=== PATIENT | male | born 1980 | race Caucasian/White ===

== ENCOUNTER 2018-04-14 01:36 | Emergency (ER) | payer MEDICAID ==
[2018-04-14] MEDS ORDERED: HYDROmorphone 0.5 MG/0.5 ML Syringe IM ONE (02:44)
--- NOTE | 2018-04-14 02:53 | EDM.PDOC ---
<Franchesca Patel - Last Filed: 04/14/18 06:29> ED HPI GENERAL MEDICAL PROBLEM - General Chief Complaint: Abdominal Pain Stated Complaint: ABD PAIN Time Seen by Provider: 04/14/18 02:48 Source of Information: Reports: Patient History Limitations: Reports: No Limitations - History of Present Illness INITIAL COMMENTS - FREE TEXT/NARRATIVE: pt arrived withj pain in the rt upper abdoman. he has no flank pain. He does have a past history of kidney stones. He dioes not have a fever. Onset: Today, Other (Pt started having ) Duration: Hour(s):, Getting Worse Location: Reports: Abdomen Associated Symptoms: Reports: No Other Symptoms Abdominal Pain Score (Numeric/FACES): 6 - Related Data Allergies Allergy/AdvReac Type Severity Reaction Status Date / Time haloperidol [From Haldol] Allergy Body Aches Verified 04/14/18 02:17 peanut Allergy Rash Verified 04/14/18 02:17 Home Meds: Home Meds Fish Oil/[place]-3 Fatty Acids [Fish Oil] 1 each PO DAILY 04/14/18 [History] Naltrexone 50 mg PO DAILY 04/14/18 [History] hydrOXYzine Pamoate [Hydroxyzine Pamoate] 50 mg PO TID 04/14/18 [History] traZODone 100 mg PO BEDTIME 04/14/18 [History] Past Medical History Genitourinary History: Reports: Renal Calculus Psychiatric History: Reports: Addiction - Past Surgical History Musculoskeletal Surgical History: Reports: Arthroscopic Knee Social & Family History - Tobacco Use Smoking Status *Q: Current Every Day Smoker Years of Tobacco use: 20 Packs/Tins Daily: 1 - Caffeine Use Caffeine Use: Reports: Coffee, Soda - Recreational Drug Use Recreational Drug Use: Yes Drug Use in Last 12 Months: Yes Recreational Drug Type: Reports: Methamphetamine ED ROS GENERAL - Review of Systems Review Of Systems: See Below Constitutional: Reports: Decreased Appetite HEENT: Reports: No Symptoms Respiratory: Reports: No Symptoms Cardiovascular: Reports: No Symptoms Endocrine: Reports: No Symptoms GI/Abdominal: Reports: Abdominal Pain, Decreased Appetite : Reports: No Symptoms Musculoskeletal: Reports: No Symptoms Skin: Reports: No Symptoms Neurological: Reports: No Symptoms Psychiatric: Reports: Anxiety Immunologic: Reports: No Symptoms ED EXAM, GI/ABD - Physical Exam Exam: See Below Text/Narrative:: Pt arrived with pain in the rt upper abdoman. He has not been vomiting. Exam Limited By: No Limitations General Appearance: Alert, Anxious, Obtunded Ears: Normal TMs Nose: Normal Inspection Throat/Mouth: Normal Inspection Head: Atraumatic Neck: Normal Inspection Respiratory/Chest: No Respiratory Distress Cardiovascular: Regular Rate, Rhythm GI/Abdominal Exam: Tender, Other (rt upper abdoman. ) (Male) Exam: Deferred Rectal (Males) Exam: Deferred Back Exam: Normal Inspection Extremities: Normal Inspection Neurological: Alert, Oriented, Normal Cognition Course - Vital Signs Last Recorded V/S: Last Vital Signs Temp 96.4 F 04/14/18 07:50 Pulse 78 04/14/18 07:50 Resp 16 04/14/18 07:50 BP 126/81 04/14/18 07:50 Pulse Ox 95 04/14/18 07:50 - Orders/Labs/Meds Orders: Active Orders 24 hr Category Date Time Status Abdomen Ltd [US] Stat Exams 04/14/18 04:01 Taken UA W/MICROSCOPIC [URIN] Urgent Lab 04/14/18 03:17 Ordered Saline Lock Insert [OM.PC] Routine Oth 04/14/18 04:00 Ordered Labs: Laboratory Tests 04/14/18 04/14/18 04/14/18 Range/Units 02:35 03:02 03:02 WBC 8.0 (4.5-11.0) K/uL RBC 5.69 (4.30-5.90) M/uL Hgb 16.8 H (12.0-15.0) g/dL Hct 47.1 (40.0-54.0) % MCV 83 (80-98) fL MCH 30 (27-31) pg MCHC 36 (32-36) % Plt Count 225 (150-400) K/uL Neut % (Auto) 57 (36-66) % Lymph % (Auto) 32 (24-44) % [place] % (Auto) 9 H (2-6) % Eos % (Auto) 2 (2-4) % Baso % (Auto) 0 (0-1) % Sodium 137 L (140-148) mmol/L Potassium 3.9 (3.6-5.2) mmol/L Chloride 101 (100-108) mmol/L Carbon Dioxide 29 (21-32) mmol/L Anion Gap 10.9 (5.0-14.0) mmol/L BUN 16 (7-18) mg/dL Creatinine 1.4 H (0.8-1.3) mg/dL Est Cr Clr Drug Dosing 76.94 mL/min Estimated GFR (MDRD) 57 L (>60) Glucose 89 (74-106) mg/dL Calcium 8.8 (8.5-10.1) mg/dL Total Bilirubin 0.4 (0.2-1.0) mg/dL AST 14 L (15-37) U/L ALT 30 (12-78) U/L Alkaline Phosphatase 63 (46-116) U/L Total Protein 7.4 (6.4-8.2) g/dL Albumin 3.6 (3.4-5.0) g/dL Globulin 3.8 H (2.3-3.5) g/dL Albumin/Globulin Ratio 1.0 L (1.2-2.2) Amylase (25-115) U/L Lipase 107 (73-393) U/L Urine Color Urine Appearance Urine pH (4.5-8.0) Ur Specific [place] (1.008-1.030) Urine Protein (NEGATIVE) mg/dL Urine Glucose (UA) (NEGATIVE) mg/dL Urine Ketones (NEGATIVE) mg/dL Urine Occult Blood (NEGATIVE) Urine Nitrite (NEGAITVE) Urine Bilirubin (NEGATIVE) Urine Urobilinogen (NORMAL) mg/dL Ur Leukocyte Esterase (NEGATIVE) Urine RBC (0-5) Urine WBC (0-5) Ur Epithelial Cells Amorphous Sediment Urine Bacteria Urine Mucus 04/14/18 04/14/18 Range/Units 03:02 03:17 WBC (4.5-11.0) K/uL RBC (4.30-5.90) M/uL Hgb (12.0-15.0) g/dL Hct (40.0-54.0) % MCV (80-98) fL MCH (27-31) pg MCHC (32-36) % Plt Count (150-400) K/uL Neut % (Auto) (36-66) % Lymph % (Auto) (24-44) % [place] % (Auto) (2-6) % Eos % (Auto) (2-4) % Baso % (Auto) (0-1) % Sodium (140-148) mmol/L Potassium (3.6-5.2) mmol/L Chloride (100-108) mmol/L Carbon Dioxide (21-32) mmol/L Anion Gap (5.0-14.0) mmol/L BUN (7-18) mg/dL Creatinine (0.8-1.3) mg/dL Est Cr Clr Drug Dosing mL/min Estimated GFR (MDRD) (>60) Glucose (74-106) mg/dL Calcium (8.5-10.1) mg/dL Total Bilirubin (0.2-1.0) mg/dL AST (15-37) U/L ALT (12-78) U/L Alkaline Phosphatase (46-116) U/L Total Protein (6.4-8.2) g/dL Albumin (3.4-5.0) g/dL Globulin (2.3-3.5) g/dL Albumin/Globulin Ratio (1.2-2.2) Amylase 63 (25-115) U/L Lipase (73-393) U/L Urine Color Yellow Urine Appearance Clear Urine pH 6.0 (4.5-8.0) Ur Specific [place] 1.015 (1.008-1.030) Urine Protein Negative (NEGATIVE) mg/dL Urine Glucose (UA) Normal (NEGATIVE) mg/dL Urine Ketones Negative (NEGATIVE) mg/dL Urine Occult Blood Negative (NEGATIVE) Urine Nitrite Negative (NEGAITVE) Urine Bilirubin Negative (NEGATIVE) Urine Urobilinogen Normal (NORMAL) mg/dL Ur Leukocyte Esterase Negative (NEGATIVE) Urine RBC 0-5 (0-5) Urine WBC 0-5 (0-5) Ur Epithelial Cells Rare Amorphous Sediment Not seen Urine Bacteria Few Urine Mucus Not seen Meds: Medications Discontinued Medications Generic Name Dose Route Start Last Admin Trade Name Freq PRN Reason Stop Dose Admin Hydromorphone HCl 0.5 mg 04/14/18 02:44 04/14/18 03:06 Dilaudid IM 04/14/18 02:45 0.5 mg ONETIME ONE Administration Ketorolac Tromethamine 30 mg 04/14/18 04:00 04/14/18 07:50 Toradol IVPUSH 04/14/18 04:01 Not Given ONETIME ONE Sodium Chloride 10 ml 04/14/18 04:00 Saline Flush FLUSH ASDIRECTED PRN Keep Vein Open - Re-Assessments/Exams Free Text/Narrative Re-Assessment/Exam: 04/14/18 06:30 pt has normal looking lab. His pain is better with the dilaudid .5. Will obtain a [place] limited. 04/14/18 06:30 Departure - Departure Disposition: Home, Self-Care 01 Clinical Impression: Flank pain Abdominal pain Qualifiers: Abdominal location: upper abdomen, unspecified Qualified Code(s): R10.10 - Upper abdominal pain, unspecified - Discharge Information Instructions: Abdominal Pain, Adult, [id number] Referrals: PCP,None [Primary Care Provider] - Forms: ED Department Discharge Care Plan Goals: Increase diet and activity as tolerated. Consider rechecking in the next 1-2 weeks if symptoms are recurring, or return to the emergency room if significant pain or discomfort. <Luis Armando España - Last Filed: 04/14/18 08:06> Course - Re-Assessments/Exams Free Text/Narrative Re-Assessment/Exam: 04/14/18 07:41 Care turned over from Dr. Patel pending ultrasound. Patient remained asymptomatic, ultrasound was negative for gallbladder disease, hydronephrosis or kidney abnormalities. Copies of all the labs were given to the patient and he will follow-up when home if symptoms are recurring. No further treatment today. Departure - Departure Time of Disposition: 07:51 Condition: Good
[2018-04-14] MEDS ORDERED: Sodium Chloride 0.9% 10 ML Syringe FLUSH PRN (04:00)
[2018-04-14] MEDS ORDERED: Ketorolac 30 MG/ML SDV IVPUSH ONE (04:00)
--- NOTE | 2018-04-16 08:49 | US ---
Abdomen Ltd CLINICAL HISTORY: Abdominal pain COMPARISON: None. TECHNIQUE: Real-time images were obtained through the right upper quadrant. FINDINGS: The liver is free of mass or biliary dilatation. It is enlarged at the over 17 cm in length . The gallbladder is free of internal filling defect. There is a focus of shadowing in the dependent portion of the gallbladder near the neck. Small stone is not excluded. There is no wall thickening Th e common bile duct measures 4 mm. The pancreas is free of mass as seen. Tail is obscured. The right k idney has a normal appearance. The IVC is normal. IMPRESSION: There is some shadowing near the gallbladder neck without definite intraluminal filling d efects seen within the gallbladder. The this could be due to a contiguous air bubble. Small gallbladd er stone is not excluded. The there is no biliary dilatation Hepatomegaly
== END 2018-04-14 07:51 | disposition home or self-care (01) ==
LOC: JP.ED 01:36
DX: R10.11 Right upper quadrant pain (principal); F17.210 Nicotine dependence, cigarettes, uncomplicated; Z91.010 Allergy to peanuts; Z88.8 Allergy status to other drugs, medicaments and biological substances
CPT/HCPCS: 36415; 76705; 80053; 81001; 82150; 83690; 85025; 96372; 99284; J1170; 99283